=== PATIENT | female | born 1985 | race Caucasian/White ===

== ENCOUNTER 2019-05-14 13:56 | Emergency (ER) | payer BC ==
[~2019-05-14] VITALS: Ht 162.6 cm; Wt 68.0 kg
[2019-05-14 14:04] VITALS: BP 144/77
[2019-05-14] MEDS ORDERED: TDAP [DIPH/PERTUSSIS/TET] 0.5 ML VIAL IM ONE ×2 (14:11→14:30)
== END 2019-05-14 15:21 | disposition home or self-care (01) ==
LOC: ER 13:56
DX: S61.215A Laceration without foreign body of left ring finger without damage to nail, initial encounter (principal); W26.8XXA Contact with other sharp object(s), not elsewhere classified, initial encounter; Y93.89 Activity, other specified; Y92.89 Other specified places as the place of occurrence of the external cause; Y99.8 Other external cause status
CPT/HCPCS: 12001; 90471; 90715; 99283; A6403